=== PATIENT | female | born 1980 | race Caucasian/White ===

== ENCOUNTER 2018-12-01 17:58 | Emergency (ER) | payer OTHER ==
[~2018-12-01] VITALS: Ht 162.6 cm; Wt 79.0 kg
[2018-12-01 18:01] VITALS: Ht 162.6 cm; Wt 79.0 kg
[2018-12-01] MEDS ORDERED: FAMOTIDINE 20 MG TAB PO STA (20:03)
[2018-12-01] MEDS ORDERED: LACTATED RINGER'S 1,000 ML IV STA (20:03)
[2018-12-01] MEDS ORDERED: morphine 2 MG INJ IV STA (20:03)
[2018-12-01] MEDS ORDERED: ONDANSETRON 4 MG INJ IV STA (20:03)
[2018-12-01] MEDS ORDERED: METOCLOPRAMIDE 10 MG INJ IV ONE (23:30)
[2018-12-01] MEDS ORDERED: DIPHENHYDRAMINE 50 MG INJ IV ONE (23:30)
[2018-12-02] MEDS ORDERED: ONDA4TAB14 PO (00:30)
[2018-12-02] MEDS ORDERED: PROM25TA14 PO (00:30)
[2018-12-02] MEDS ORDERED: NAPR-985 PO (00:36)
[2018-12-02 00:43] VITALS: BP 126/87; PULSE 93; RESP 16
--- NOTE | 2018-12-02 02:54 | ERD ---
ER Documentation Chief Complaint Chief Complaint AP AFTER EATING GAUCAMOLE HPI 38 year-old [female] coming in today with Chief Complaint: Vomiting History of Present Illness: Patient reports eating guacamole today that was brought from store. Patient reports vomiting at 2pm, within a couple hours after guacamole. Patient reports over 12 episodes of vomiting. Associated symptoms includes nausea, diarrhea, abdominal pain and cramping patient reports 10 of 10 pain. Patient also with unrelated right hand pain. Reports history of carpal tunnel syndrome. Review of systems: All systems were reviewed and are negative except for what is indicated in the history of present illness. Past Medical History: Hypertension Social History: [Patient denies tobacco, alcohol, elicit drug use] Medications: [Reviewed as documented Nursing Notes] Allergies: [NKDA] Social Concerns: Denies ROS All systems reviewed and are negative except as per history of present illness. Medications Home Meds Active Scripts Naproxen* (Naprosyn*) 500 Mg Tablet, 500 MG PO BID PRN for PAIN AND/OR INFLAMMATION, #30 TAB Prov:ANTOINETTE GAYLE V [employer]ATHER GRAINER 12/02/18 Ondansetron (Ondansetron Odt) 4 Mg Tab.rapdis, 4 MG PO Q6H PRN for NAUSEA AND/OR VOMITING, #10 TAB Prov:ANTOINETTE GAYLE V [employer]ATHER GRAINER 12/02/18 Promethazine Hcl* (Phenergan*) 25 Mg Tablet, 25 MG PO Q6 PRN for NAUSEA AND/OR VOMITING, #15 TAB Prov:ANTOINETTE GAYLE V [employer]ATH[employer] G[employer]INER 12/02/18 Allergies Allergies: Coded Allergies: No Known Drug Allergies (Verified Allergy, Mild, 12/01/18) PMhx/Soc History of Surgery: Yes (OVARIAN CYST RIGHT ) Anesthesia Reaction: No Hx Neurological Disorder: No Hx Respiratory Disorders: Yes (ASTHMA) Hx Cardiac Disorders: No Hx Psychiatric Problems: No Hx Miscellaneous Medical Probl: No Hx Alcohol Use: No Hx Substance Use: No Hx Tobacco Use: No Smoking Status: Never smoker FmHx Family History: diabetes, coronary disease Physical Exam Vitals Vital Signs Date Temp Pulse Resp B/P (MAP) Pulse Ox O2 O2 Flow FiO2 Time Delivery Rate 12/02/18 97.8 93 16 126/87 98 Room Air 00:43 (100) 12/01/18 98.4 89 17 148/91 98 Room Air 23:06 (110) 12/01/18 97.9 98 18 163/65 98 18:01 (97) Physical Exam Const: No acute distress Head: Atraumatic Eyes: Normal Conjunctiva ENT: Normal External Ears, Nose and Mouth. Neck: Full range of motion. No meningismus. Resp: Clear to auscultation bilaterally Cardio: Regular rate and rhythm, no murmurs Abd: Soft, non distended. Hyperactive bowel sounds in all 4 quadrants. Diffuse tenderness to all 4 quadrants. Skin: No petechiae or rashes Back: No midline or flank tenderness Ext: No cyanosis, or edema Neur: Awake and alert Psych: Normal Mood and Affect Result Diagram: 12/01/18200812/01/182008 Results 24 hrs Laboratory Tests Test 12/01/18 20:09 12/01/18 21:02 White Blood Count 18.8 10^3/ul Red Blood Count 4.72 10^6/ul Hemoglobin 15.1 g/dl Hematocrit 44.8 % Mean Corpuscular Volume 94.9 fl Mean Corpuscular Hemoglobin 32.0 pg Mean Corpuscular Hemoglobin Concent 33.7 g/dl Red Cell Distribution Width 12.1 % Platelet Count 300 10^3/UL Mean Platelet Volume 10.7 fl Immature Granulocytes % 0.800 % Neutrophils % 77.2 % Lymphocytes % 12.8 % Monocytes % 7.1 % Eosinophils % 1.7 % Basophils % 0.4 % Nucleated Red Blood Cells % 0.0 /100WBC Immature Granulocytes # 0.150 10^3/ul Neutrophils # 14.5 10^3/ul Lymphocytes # 2.4 10^3/ul Monocytes # 1.3 10^3/ul Eosinophils # 0.3 10^3/ul Basophils # 0.1 10^3/ul Nucleated Red Blood Cells # 0.0 10^3/ul Urine Color YELLOW Urine Clarity CLEAR Urine pH 6.0 Urine Specific Wilton 1.028 Urine Ketones TRACE mg/dL Urine Nitrite NEGATIVE mg/dL Urine Bilirubin NEGATIVE mg/dL Urine Urobilinogen NEGATIVE mg/dL Urine Leukocyte Esterase NEGATIVE Felix/ul Urine Hemoglobin NEGATIVE mg/dL Urine Glucose NEGATIVE mg/dL Urine Total Protein NEGATIVE mg/dl Sodium Level 142 mmol/L Potassium Level 3.7 mmol/L Chloride Level 105 mmol/L Carbon Dioxide Level 24 mmol/L Anion Gap 13 Blood Urea Nitrogen 15 mg/dl Creatinine 0.62 mg/dl Est Glomerular Filtrat Rate mL/min > 60 mL/min Glucose Level 108 mg/dl Calcium Level 9.1 mg/dl Total Bilirubin 0.3 mg/dl Direct Bilirubin 0.00 mg/dl Indirect Bilirubin 0.3 mg/dl Aspartate Amino Transf (AST/SGOT) 24 IU/L Alanine Aminotransferase (ALT/SGPT) 33 IU/L Alkaline Phosphatase 73 IU/L Total Protein 8.0 g/dl Albumin 4.5 g/dl Globulin 3.50 g/dl Albumin/Globulin Ratio 1.28 Lipase 52 U/L POC Beta HCG, Qualitative NEGATIVE Current Medications Medications Dose Sig/Jaguar Start Time Status Last (Trade) Ordered Route PRN Stop Time Admin Dose Reason Admin Lactated 1,000 ml @ Q1H STAT 12/01/18 DC 12/01/18 Ringer's 1,000 mls/hr IV 20:03 20:13 12/01/18 21:02 Morphine 2 mg ONCE STAT 12/01/18 DC 12/01/18 Sulfate IV 20:03 20:14 (morphine) 12/01/18 20:05 Ondansetron 8 mg ONCE STAT 12/01/18 DC 12/01/18 HCl (Zofran IV 20:03 20:13 Inj) 12/01/18 20:05 Famotidine 20 mg ONCE STAT 12/01/18 DC 12/01/18 (Pepcid) PO 20:03 20:13 12/01/18 20:05 25 mg ONCE ONCE 12/01/18 DC 12/01/18 Diphenhydrami IV 23:30 23:07 ne HCl 12/01/18 23:31 (Benadryl) 10 mg ONCE ONCE 12/01/18 DC 12/01/18 Metoclopramid IV 23:30 23:07 e HCl 12/01/18 23:31 (Reglan) Procedures/MDM Patient with complaint of vomiting ED course includes a thorough examination and history. Labs, antiemetics, pain medication, H2 antagonist, IV rehydration. Low suspicion for life-threatening gastrointestinal medical emergency. Patient reassessment at 2245: P.o. challenge complete. Patient reporting nausea. Will order Reglan and Benadryl. And re-assess. Patient reassessment at 0032: Disposition given. patient no along reporting nausea. Patient tolerating p.o. Fluids, drinking Pedialyte. Disposition given questions answered, . Otherwise healthy patient presenting with constellation of symptoms likely rep resenting uncomplicated gastroenteritis as characterized by history, physical exam findings [lab findings]. No respiratory distress, otherwise relatively well appearing and nontoxic. Patient educated on diagnoses, prescriptions, follow-up care, return precautions. Strict return precautions given for worsening condition; questions answered discharge. Disposition for discharge with followup in 2-3 days with PCP/clinic. Departure Diagnosis: Primary Impression: Right hand pain Additional Impression: Gastroenteritis Condition: Stable Patient Instructions: Gastroenteritis, Non-Infectious (Child) (Adult), Traveler's Diarrhea (4Y-Adult) Referrals: [facility] YOU HAVE RECEIVED A MEDICAL SCREENING EXAM AND THE RESULTS INDICATE THAT YOU DO NOT HAVE A CONDITION THAT REQUIRES URGENT TREATMENT IN THE EMERGENCY DEPARTMENT. FURTHER EVALUATION AND TREATMENT OF YOUR CONDITION CAN WAIT UNTIL YOU ARE SEEN IN YOUR DOCTORS OFFICE WITHIN THE NEXT 1-2 DAYS. IT IS YOUR RESPONSIBILITY TO MAKE AN APPOINTMENT FOR FOLOW-UP CARE. IF YOU HAVE A PRIMARY DOCTOR --you should call your primary doctor and schedule an appointment IF YOU DO NOT HAVE A PRIMARY DOCTOR YOU CAN CALL OUR PHYSICIAN REFERRAL HOTLINE AT IF YOU CAN NOT AFFORD TO SEE A PHYSICIAN YOU CAN CHOSE FROM THE FOLLOWING [facility] [address] [facility]. [facility] [address] [facility]. [facility] [address] [facility] [facility] [address] [facility]. [facility] [address] [facility]. [facility]. [address] [facility]. [facility] YOU HAVE RECEIVED A MEDICAL SCREENING EXAM AND THE RESULTS INDICATE THAT YOU DO NOT HAVE A CONDITION THAT REQUIRES URGENT TREATMENT IN THE EMERGENCY DEPARTMENT. FURTHER EVALUATION AND TREATMENT OF YOUR CONDITION CAN WAIT UNTIL YOU ARE SEEN IN YOUR DOCTORS OFFICE WITHIN THE NEXT 1-2 DAYS. IT IS YOUR RESPONSIBILITY TO MAKE AN APPOINTMENT FOR FOLOW-UP CARE. IF YOU HAVE A PRIMARY DOCTOR --you should call your primary doctor and schedule and appointment IF YOU DO NOT HAVE A PRIMARY DOCTOR YOU CAN CALL OUR PHYSICIAN REFERRAL HOTLINE AT . IF YOU CAN NOT AFFORD TO SEE A PHYSICIAN YOU CAN CHOSE FROM THE FOLLOWING [facility] INSTITUTIONS: [facility] [address] [place] [address] [facility] [address] [place] [address] [facility] [address] [place] [address] Additional Instructions: Call your primary care doctor TOMORROW for an appointment during the next 2-3 days.See the doctor sooner or return here if your condition worsens before your appointment time. follow patient instructions. stay hyrated. return if unable to self hydrate with help of antiemetics or if fever occurs. ANTOINETTE GAYLE NP Dec 02, 2018 02:54
== END 2018-12-02 00:45 | disposition home or self-care (01) ==
LOC: FTE 17:58
DX: M79.641 Pain in right hand (principal); K52.9 Noninfective gastroenteritis and colitis, unspecified; I10 Essential (primary) hypertension; J45.909 Unspecified asthma, uncomplicated
CPT/HCPCS: 36415; 80053; 81003; 81025; 83690; 85025; 96361; 96374; 96375; J1200; J2270; J2405; J2765; J7120; Z7502; Z7610